=== PATIENT | female | born 1960 | race Caucasian/White ===

== ENCOUNTER 2017-07-29 00:02 | Emergency (ER) | payer MEDICAID, OTHER ==
[2017-07-29 00:28] VITALS: BP 134/67; PULSE 69; RESP 18; TEMP 98.2; O2SAT 99
[2017-07-29] MEDS ORDERED: Sodium Chloride 0.9% 1,000 ML IV SCH (01:00)
[2017-07-29 01:59] LABS: BASO # 0.1 K/uL (0.0-0.2); BASO % 0.8 % (0.0-2.0); EOS # 0.2 K/uL (0.0-0.7); EOS % 2.5 % (0.0-4.0); HEMOGLOBIN 13.9 g/dL (12.0-16.0); LYMPH # 2.5 K/uL (1.0-4.3); LYMPH % 38.6 % (20.0-40.0); MEAN CELL VOLUME 90.8 fl (81.0-99.0); MEAN CORPUSCULAR HEMOGLOBIN 30.9 pg (27.0-31.0); MEAN PLATELET VOLUME 9.9 fl (7.2-11.7); MONO # 0.6 K/uL (0.0-0.8); MONO % 8.6 % (0.0-10.0); NEUT # 3.2 K/uL (1.8-7.0); NEUT % 49.5 % (50.0-75.0); NRBC % 0.2 % (0.0-0.0); RBC 4.5 Mil/uL (3.80-5.20); RED CELL DISTRIBUTION WIDTH 13.5 % (11.5-14.5); WHITE BLOOD COUNT 6.5 K/uL (4.8-10.8)
[2017-07-29 02:07] LABS: ALB/GLOB RATIO 1.1 (1.0-2.1); ALBUMIN 4.2 g/dL (3.5-5.0); ALT/SGPT 52 U/L (9-52); AST/SGOT 46 U/L (14-36); BLOOD UREA NITROGEN 16 mg/dl (7-17); CALCIUM 9.1 mg/dL (8.4-10.2); GFR AFRICAN-AMERICAN > 60; GFR NON-AFRICAN AMERICAN > 60
--- NOTE | 2017-07-29 02:10 | ED PDOC ---
Syncope/Near Syncope/Dizziness Time Seen by Provider: 07/29/17 00:33 Chief Complaint (Nursing): Dizziness/Lightheaded Chief Complaint (Provider): Dizziness History Per: Patient History/Exam Limitations: no limitations Onset/Duration Of Symptoms: Hrs (started at 3 pm Friday 07/28) Current Symptoms Are (Timing): Still Present Additional Complaint(s): 57 y/o female with a history of hypothyroidism presents to the ED with the complaint of dizziness. Patient states it began at 3 pm, described as "the room is spinning" and is associated with a right posterior headache and nausea. She took Aleve at 4pm with no relief. Denies any fever, neck pain, neck stiffness, vomiting, sick contacts, chest pain, SOB, rash, or recent travel. Of note, patients LMP was greater than 2 years ago. PMD: Shashi Brown Past Medical History Reviewed: Historical Data, Nursing Documentation, Vital Signs Vital Signs: Last Vital Signs Temp 98.2 F 07/29/17 00:20 Pulse 69 07/29/17 00:20 Resp 18 07/29/17 00:20 BP 134/67 07/29/17 00:20 Pulse Ox 99 07/29/17 00:20 - Medical History PMH: Hypothyroidism - Surgical History Surgical History: Appendectomy Other surgeries: Thyroidectomy - Family History Family History: States: No Known Family Hx - Social History Current smoker - smoking cessation education provided: No Ex-Smoker (has not smoked in the last 12 months): No Alcohol: None Drugs: Denies - Home Medications Home Medications: Ambulatory Orders Medication Instructions Recorded Meclizine [Meclizine*] 25 mg PO TID #15 tab 07/29/17 - Allergies Allergies/Adverse Reactions: Allergies Allergy/AdvReac Type Severity Reaction Status Date / Time acetaminophen [From Tylenol] Allergy SWELLING Verified 07/29/17 00:19 Review of Systems ROS Statement: Except As Marked, All Systems Reviewed And Found Negative Constitutional: Negative for: Fever Cardiovascular: Negative for: Chest Pain Respiratory: Negative for: Shortness of Breath Gastrointestinal: Positive for: Nausea. Negative for: Vomiting Musculoskeletal: Negative for: Neck Pain (or stiffness) Skin: Negative for: Rash Neurological: Positive for: Headache (right posterior), Dizziness Physical Exam - Reviewed Nursing Documentation Reviewed: Yes Vital Signs Reviewed: Yes - Physical Exam Appears: Positive for: Well, Non-toxic, No Acute Distress Head Exam: Positive for: ATRAUMATIC, NORMOCEPHALIC Skin: Positive for: Normal Color, Warm, Dry Eye Exam: Positive for: EOMI, PERRL ENT: Positive for: Pharynx Is (clear, uvula midline), TM Is/Are (nonbulging and nonerythematous bilaterally). Negative for: Sinus Pain/Drainage, Nasal Congestion, Pharyngeal Erythema, Other (cerumen impaction) Neck: Positive for: Painless ROM, Supple ((-) rigidity) Cardiovascular/Chest: Positive for: Regular Rate, Rhythm Respiratory: Positive for: Normal Breath Sounds. Negative for: Decreased Breath Sounds, Accessory Muscle Use, Stridor, Wheezing, Respiratory Distress Gastrointestinal/Abdominal: Positive for: Bowel Sounds (x4), Soft. Negative for : Tenderness, Mass, Distended, Guarding Back: Positive for: Normal Inspection. Negative for: L CVA Tenderness, R CVA Tenderness, Vertebral Tenderness Extremity: Positive for: Normal ROM Neurologic/Psych: Positive for: Alert, sanitary plumber II-XII (grossly intact), Oriented (x3 ), Mood/Affect (appropriate), Cerebellar Tests (intact), Gait (steady in ED). Negative for: Motor/Sensory Deficits, Aphasia, Facial Droop - Laboratory Results Result Diagrams: 07/29/17 01:52 07/29/17 01:52 - ECG O2 Sat by Pulse Oximetry: 99 (RA) Pulse Ox Interpretation: Normal Medical Decision Making Medical Decision Making: Time: 00:20 Impression: Dizziness and headache Initial Plan: * Antivert 25 mg PO * Reglan 10 mg IVP * IV Fluids * CBC * CMP 0200 Labs reviewed and grossly normal. 0245 On re-evaluation, patient reports improvement of headache, denies any dizziness or nausea at this time. On exam, patient remains AAOx3, in no acute distress. Lungs clear to auscultation, cardiac RRR, abdomen soft, non-tender, repeat neuro exam shows no focal findings. Ambulatory in ED with a steady, unassisted gait. VSS, stable for discharge. Lab/Diagnostic results d/w the patient in great detail. Diagnosis of headache, dizziness d/w the patient. Based on history, exam and diagnostic results, plan will be for outpatient follow up. Patient instructed to follow-up with pmd / referral provided / the clinic in 1- 2 days without fail. Advised to take medication as prescribed. Return to the emergency room at any time for any new or worsening symptoms. Patient states she fully agrees with and understands discharge instructions. States that she agrees with the plan and disposition. Verbalized and repeated discharge instructions and plan. I have given the patient opportunity to ask any additional questions. Scribe Attestation: Documented by Haider Bowen acting as a scribe for Fiorella Bazan PA-C. Scribe Attestation: All medical record entries made by the Scribe were at my direction and personally dictated by me. I have reviewed the chart and agree that the record accurately reflects my personal performance of the history, physical exam, medical decision making, and the department course for this patient. I have also personally directed, reviewed, and agree with the discharge instructions and disposition. Disposition - Clinical Impression Clinical Impression: Dizziness, Headache - Patient ED Disposition Is Patient to be Admitted: No Counseled Patient/Family Regarding: Studies Performed, Diagnosis, Need For Followup, Rx Given - Disposition Disposition: Routine/Home Disposition Time: 03:00 Condition: STABLE Additional Instructions: FOLLOW UP WITH PMD IN 1-2 DAYS WITHOUT FAIL. RETURN TO ED WITH ANY NEW OR WORSENING SYMPTOMS. Prescriptions: Meclizine [Meclizine*] 25 mg PO TID #15 tab Instructions: Vertigo (a Type of Dizziness), Headache, Adult Forms: [employer] ([employer]) Print Language: LUX[place]ISH - POA Present On Arrival: None Results - Lab Results Lab Results: 07/29/17 07/29/17 01:52 01:52 WBC 6.5 RBC 4.50 Hgb 13.9 Hct 40.9 MCV 90.8 MCH 30.9 MCHC 34.0 RDW 13.5 Plt Count 191 MPV 9.9 Neut % (Auto) 49.5 L Lymph % (Auto) 38.6 Lake % (Auto) 8.6 Eos % (Auto) 2.5 Baso % (Auto) 0.8 Neut # (Auto) 3.2 Lymph # (Auto) 2.5 Lake # (Auto) 0.6 Eos # (Auto) 0.2 Baso # (Auto) 0.1 Sodium 142 Potassium 3.7 Chloride 101 Carbon Dioxide 27 Anion Gap 18 BUN 16 Creatinine 0.6 L Est GFR ( Amer) > 60 Est GFR (Non-Af Amer) > 60 Random Glucose 116 H Calcium 9.1 Total Bilirubin 0.3 AST 46 H ALT 52 Alkaline Phosphatase 97 Total Protein 8.0 Albumin 4.2 Globulin 3.8 Albumin/Globulin Ratio 1.1
== END 2017-07-29 04:25 | disposition home or self-care (01) ==
LOC: H.ER 00:02
DX: R42 Dizziness and giddiness (principal); R51 Headache; E03.9 Hypothyroidism, unspecified
CPT/HCPCS: 80053; 85025; 96374; 99285; J2765; J7040